=== PATIENT | female | born 1980 | race Caucasian/White ===

== ENCOUNTER 2022-04-08 11:29 | Outpatient (REF) | payer OTHER, SELFPAY ==
[2022-04-08 13:25] LABS: Erythrocyte Sedimentation Rate 9 MM/HR (0-20); T4 Thyroxine 8.2 ug/dL (4.5-12.0); Thyroid Stimulating Hormone 1.79 uIU/mL (0.32-4.0)
[2022-04-12 21:52] LABS: Acetylcholine Receptor Binding <0.30 nmol/L
[2022-04-24 21:06] LABS: Acetylcholine Recep Modulating 30
== END 2022-04-08 11:30 | disposition home or self-care (01) ==
LOC: HO.LAB 11:29
PROVIDERS: PCP Internal Medicine; Visit Provider Psychiatry & Neurology Neurology
DX: G70.00 Myasthenia gravis without (acute) exacerbation (principal)
CPT/HCPCS: 36415; 82550; 83519; 84436; 84443; 85652